=== PATIENT | male | born 1980 ===

== ENCOUNTER 2023-10-28 14:53 | Emergency (ER) | payer SELFPAY ==
[~2023-10-28] VITALS: Ht 195.6 cm; Wt 134.1 kg
[2023-10-28 15:11] VITALS: BP 130/95; PULSE 133; RESP 19; TEMP 98.6; O2SAT 100
[2023-10-28] MEDS ORDERED: SODIUM CHLORIDE 0.9% 1,000 ML IV ONE (15:45)
== END 2023-10-28 18:44 | disposition left against medical advice (07) ==
LOC: EMS 14:53
DX: R42 Dizziness and giddiness (principal); Z53.21 Procedure and treatment not carried out due to patient leaving prior to being seen by health care provider
CPT/HCPCS: 93005

== ENCOUNTER 2023-10-28 19:21 | Emergency (ER) | payer SELFPAY | END 2023-10-28 21:13 | disposition left against medical advice (07) | LOC: EMS 19:23 | DX: Z53.21 Procedure and treatment not carried out due to patient leaving prior to being seen by health care provider (principal) ==

== ENCOUNTER 2023-10-28 22:58 | Emergency (ER) | payer SELFPAY | END 2023-10-28 23:50 | disposition left against medical advice (07) | LOC: EMS 23:12 | DX: Z53.21 Procedure and treatment not carried out due to patient leaving prior to being seen by health care provider (principal) ==